=== PATIENT | female | born 1990 | race Hispanic/Latino ===

== ENCOUNTER 2018-05-27 18:42 | Emergency (ER) | payer SELFPAY ==
--- OUTSIDE RECORDS SUMMARY | 2018-05-27 18:44 | XMS REPORT | Summary of Care ---
:1990 Author Organization [facility] Address [address] [place] [address]- Encounter HQ Sonja(FIN) [phone] Date(s): 10/15/16 - 10/15/[address] [address]- Discharge Diagnosis: DUB (dysfunctional uterine bleeding) Discharge Disposition: Home or Self Care Attending Physician: Chas Cheema MD Vital Signs Most recent to oldest [Reference Range]: 1 2 Temperature Oral [96.4-99.1 DegF] 98 DegF (10/15/16 12:21 PM) Blood Pressure [90-140/60-90 mmHg] 111/67 mmHg 125/70 mmHg (10/15/16 3:07 PM) (10/15/16 12:21 PM) Respiratory Rate [14-20 BRMIN] 17 BRMIN 20 BRMIN (10/15/16 3:07 PM) (10/15/16 12:21 PM) Peripheral Pulse Rate [60-100 bpm] 77 bpm 128 bpm (10/15/16 3:07 PM) *HI* (10/15/16 12:21 PM) Weight 54.545 kg (10/15/16 12:21 PM) Problem List Condition Effective Dates Status Health Status Informant Ectopic (Confirmed) Resolved Allergies, Adverse Reactions, Alerts Substance Reaction Severity Status NKDA Active Medications Lutera oral tablet 1 tab, PO, Daily, # 28 tab, 0 Refill(s) Start Date: 10/15/16 Status: Ordered Results URINE CHEM Most recent to oldest [Reference Range]: 1 U Preg [Negative] Negative (10/15/16 1:01 PM) URINE AND STOOL Most recent to oldest [Reference Range]: 1 UA Turbidity [Clear] Clear (10/15/16 1:01 PM) UA Color Straw *NA* (10/15/16 1:01 PM) UA pH [5.0-8.0] 7.0 (10/15/16 1:01 PM) UA Spec Grav [<=1.030] 1.003 (10/15/16 1:01 PM) UA Glucose [Negative mg/dL] Negative mg/dL *NA* (10/15/16 1:01 PM) UA Blood [Negative] Large *ABN* (10/15/16 1:01 PM) UA Ketones Negative *NA* (10/15/16 1:01 PM) UA Protein [Negative mg/dL] Negative mg/dL (10/15/16 1:01 PM) UA Urobilinogen [0.1-1.0 mg/dL] <=1.0 mg/dL *NA* (10/15/16 1:01 PM) UA Bili [Negative] Negative *NA* (10/15/16 1:01 PM) UA Leuk Est [Negative] Negative (10/15/16 1:01 PM) UA Nitrite [Negative] Negative (10/15/16 1:01 PM) UA WBC [0-5 /HPF] 1 /HPF (10/15/16 1:01 PM) UA RBC [0-2 /HPF] 1 /HPF (10/15/16 1:01 PM) UA Bacteria [None Seen /HPF] Occasional /HPF *NA* (10/15/16 1:01 PM) UA Sq Epi [Few /LPF] Moderate /LPF *ABN* (10/15/16 1:01 PM) UA Mucus [None Seen /LPF] Few /LPF *NA* (10/15/16 1:01 PM) Immunizations No data available for this section Procedures Procedure Date Related Diagnosis Body Site section operation1 1Ectopic Social History Social History Type Response Alcohol Current, Frequency: 1-2 times per week. Smoking Status Never smoker; Exposure to Tobacco Smoke None; Cigarette Smoking Last 365 Days No; Reg Smoking Cessation Counseling No Assessment and Plan No data available for this section
--- OUTSIDE RECORDS SUMMARY | 2018-05-27 18:44 | XMS REPORT | Continuity of Care Document ---
:1990 Author Organization Interface Problems Problem Status Onset Classification Date Comments Source Date Reported Discharge 10/18/2016 [facility] Diagnosis: [place] DUB VAGINAL Active [facility] BLEEDING [place] Ectopic Resolved Problem 10/18/2016 [facility] Medications Medication Details Route Status Patient Ordering Order Source Instructions Provider Date {21 (Ethinyl 1 tab, PO, Active Estradiol 0.02 MG Daily, # 017 [facility] / Levonorgestrel 28 tab, [place] 0.1 MG Oral Refill(s) Tablet) / 7 (Inert Ingredients 1 MG Oral Tablet) } Pack [Lutera 28 Day] Allergies, Adverse Reactions, Alerts Substance Category Reaction Severity Reaction Status Date Comments Source type Reported NKDA Assertion Drug Active allergy [facility] Immunizations Immunization Date Given Site Status Last Updated Comments Source Results Order Results Value Reference Date Interpretation Comments Source Name Range URINE UA Ketones Negative AND 2016 [facility] URINE UA Color Straw AND 2016 [facility] URINE UA <=1.0 mg/dL 0.1 - 1.0 AND Urobilinogen 2016 [facility] URINE UA Bili Negative Negative AND [facility] (10/15/16 1:01 PM) URINE UA Turbidity Clear Clear AND 2016 [facility] pH 7.0 5.0 - 8.0 AND 2016 [facility] URINE UA Spec Grav 1.003 <=1.030 AND 2016 [facility] URINE UA RBC 1 /HPF 0 - 2 AND 2016 [facility] URINE UA Mucus Few /LPF None Seen AND /LPF 2016 [facility] URINE UA Bacteria Occasional None Seen AND /HPF /HPF 2016 [facility] URINE UA Blood Large Negative AND 2016 [facility] *ABN* [facility] (10/15/16 1:01 PM) URINE UA Sq Epi Moderate Few /LPF AND /LPF 2016 [facility] URINE UA Leuk Est Negative Negative AND 2016 [facility] (10/15/16 1:01 PM) [facility] URINE UA Nitrite Negative Negative AND 2016 [facility] (10/15/16 1:01 PM) [facility] URINE UA WBC 1 /HPF 0 - 5 AND 2016 [facility] URINE UA Glucose Negative Negative AND mg/dL mg/dL 2016 [facility] URINE UA Protein Negative Negative AND mg/dL mg/dL 2016 [facility] URINE U Preg Negative Negative CHEM 2016 [facility] (10/15/16 1:01 PM) [facility] Vital Signs Vital Sign Value Date Comments Source Respitory Rate 17 10/15/[address] [facility] Systolic (mm Hg) 111 10/15/[address] [facility] Diastolic (mm Hg) 67 10/15/[address] [facility] Heart Rate 77 10/15/[address] [facility] Weight 54.545 10/15/[address] [facility] Temperature Oral (F) 98 F 10/15/[address] [facility] Heart Rate 128 10/15/[address] [facility] Respitory Rate 20 10/15/[address] [facility] Systolic (mm Hg) 125 10/15/[address] [facility] Diastolic (mm Hg) 70 10/15/[address] [facility] Encounters Location Location Encounter Encounter Reason Attending ADM DC Status Source Details Type Number For Provider Date Date Visit [facility] Emergency [id number] Chas 10/15 10/15 [facility] /2016 [facility] Procedures Procedure Code Date Perfomer Comments Source section [id number] [facility] [id number] Ectopic [facility] operation<sup>1< [facility] /sup>
[2018-05-27] MEDS ORDERED: CEFTRIAXONE 1000 MG/VIAL ONE ×2 (19:52→20:56)
[2018-05-27] MEDS ORDERED: ACETAMINOPHEN 325 MG TABLET ONE (19:52)
[2018-05-27] MEDS ORDERED: ONDANSETRON 4 MG/2 ML VIAL ONE (19:52)
[2018-05-27] MEDS ORDERED: NA CHLORIDE 0.9% 1,000 ML ONE (19:52)
[2018-05-27] MEDS ORDERED: NA CHLORIDE 0.9% 50 ML IV ONE ×2 (19:53→20:57)
[2018-05-27 19:57] LABS: Absolute Lymphocytes (CBC) 0.3 K/uL (0.7-4.9); Absolute Monocytes 0.4 K/uL (0.1-1.3); Basophils % 0.2 % (0-1.3); Hematocrit 40.1 % (36.0-45.0); Lymphocytes % 3.8 % (15.3-44.8); MCV 94.3 fL (80-100); MPV 8.8 fL (7.6-11.3); Monocytes % 4.2 % (3.3-12.3); RBC Red Blood Cell Count 4.25 M/uL (3.86-4.86)
[2018-05-27 20:01] LABS: ALT/SGPT 79 U/L (12-78); AST/SGOT 52 U/L (15-37); Albumin 3.7 g/dL (3.4-5.0); Alkaline Phosphatase 74 U/L (45-117); BUN Blood Urea Nitrogen 6 mg/dL (7-18); Bicarbonate 26 mmol/L (21-32); Bilirubin Direct 0.2 mg/dL (0-0.2); Bilirubin Total 0.5 mg/dL (0.2-1.0); Glucose Level 129 mg/dL (74-106); Lipase 76 U/L (73-393); Potassium 3.1 mmol/L (3.5-5.1); Protein, Total 8.4 g/dL (6.4-8.2); Sodium Level 133 mmol/L (136-145)
--- NOTE | 2018-05-27 20:15 | RAD REPORT ---
EXAM DESCRIPTION: CT - Stone Protocol - 05/27/2018 8:04 pm CLINICAL HISTORY: Fever, right lower quadrant pain, vomiting COMPARISON: None. TECHNIQUE: Axial 5 mm thick images were obtained without oral or IV contrast. The [id number] span s the entirety of the system including uppermost abdomen and lung bases. All CT scans are performed using dose optimization technique as appropriate and may include automated exposure control or mA/KV adjustment according to patient size. FINDINGS: No hydronephrosis is present and no obstructing ureteral calculi. No suspicious renal mass es. Isodense masses and pyelonephritis are not excluded on a stone protocol CT scan. No urinary bladd er suspicious finding. Liver is prominent in size and shows a very diffuse fatty infiltration pattern. No focal liver lesion s seen on noncontrast imaging. Spleen and pancreas show no suspicious findings. Gallbladder is only p artially filled. Gallstones can be occult. No acute gallbladder finding seen. Biliary tree within nor mal limits. No significant adrenal finding. Minimal dilatation of the right ureter is present. No obstructing or nonobstructing calculus. There i s questionable minimal edema of the right renal parenchyma compared to the left. No left-sided hydron ephrosis or calculus. No bladder calculus seen. Uterus and ovaries show no suspicious findings. Trace amount of free fluid in the cul-de-sac is withi n physiologic limits. No free air or pneumatosis. No hernia, mass or bulky lymphadenopathy noted. No gastric dilatation or wall thickening. No acute la rge or small bowel finding identified. Appendix is normal. No significant bony abnormality. IMPRESSION: No appendicitis or other acute GI process identified. Mild dilatation of the right renal collecting system without obstructing calculus. No bladder calculu s. This is relatively mild dilatation. Blood or inflammatory debris in a ureter can cause this patter n. A recently passed stone would be possible. Prominent liver showing diffuse fatty infiltration. Isodense masses and pyelonephritis are not excluded on stone protocol technique.
--- NOTE | 2018-05-27 20:20 | RAD REPORT ---
EXAM DESCRIPTION: RAD - Chest Single View - 05/27/2018 8:11 pm CLINICAL HISTORY: Cough, possible fever, abdominal pain COMPARISON: None. TECHNIQUE: AP portable chest image was obtained 1958 hours . FINDINGS: Lungs are clear. Heart and vasculature are normal. No measurable pleural effusion and no p neumothorax. No gross bony abnormality seen. No acute aortic findings suspected. IMPRESSION: No acute cardiopulmonary process.
--- NOTE | 2018-05-27 20:21 | EDPHYS ---
Physician Documentation [facility] Name: Melissa Correa Age: 27 yrs Sex: Female : 1990 Arrival Date: 05/27/2018 Time: 18:46 Bed 7 Private MD: None, None ED Physician Ken Hendricks HPI: 05/27 19:36 This 27 yrs old Female presents to ER via Ambulatory with complaints of Fever, neel Sore Throat, Vomiting, Chills. 19:36 The patient reports fever, that was measured at 101 degrees Fahrenheit. Onset: The neel symptoms/episode began/occurred 2 day(s) ago. Modifying factors: there are no obvious modifying factors. Associated signs and symptoms: Pertinent positives: abdominal pain, chills, cough. Severity of symptoms: At their worst the symptoms were mild moderate in the emergency department the symptoms are unchanged. The patient has not experienced similar symptoms in the past. 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 - Social history:: Smoking status: Patient/guardian denies using tobacco. - Ebola Screening: : No symptoms or risks identified at this time. - Family history:: not pertinent. ROS: 19:36 Constitutional: Negative for fever, chills, and weight loss, Eyes: Negative for injury, neel pain, redness, and discharge, Neck: Negative for injury, pain, and swelling, Cardiovascular: Negative for chest pain, palpitations, and edema, Respiratory: Negative for shortness of breath, cough, wheezing, and pleuritic chest pain, Back: Negative for injury and pain, : Negative for injury, bleeding, discharge, and swelling, MS/Extremity: Negative for injury and deformity, Skin: Negative for injury, rash, and discoloration, Neuro: Negative for headache, weakness, numbness, tingling, and seizure, Psych: Negative for depression, anxiety, suicide ideation, homicidal ideation, and hallucinations, Allergy/Immunology: Negative for hives, rash, and allergies, Endocrine: Negative for neck swelling, polydipsia, polyuria, polyphagia, and marked weight changes, Hematologic/Lymphatic: Negative for swollen nodes, abnormal bleeding, and unusual bruising. 19:36 ENT: Positive for sore throat. 19:36 Abdomen/GI: Positive for abdominal pain, nausea and vomiting, of the right lower quadrant. Exam: 19:36 Head/Face: Normocephalic, atraumatic. Eyes: Pupils equal round and reactive to light, neel extra-ocular motions intact. Lids and lashes normal. Conjunctiva and sclera are non-icteric and not injected. Cornea within normal limits. Periorbital areas with no swelling, redness, or edema. Neck: Trachea midline, no thyromegaly or masses palpated, and no cervical lymphadenopathy. Supple, full range of motion without nuchal rigidity, or vertebral point tenderness. No Meningismus. Chest/axilla: Normal chest wall appearance and motion. Nontender with no deformity. No lesions are appreciated. Cardiovascular: Regular rate and rhythm with a normal S1 and S2. No gallops, murmurs, or rubs. Normal PMI, no JVD. No pulse deficits. Respiratory: Lungs have equal breath sounds bilaterally, clear to auscultation and percussion. No rales, rhonchi or wheezes noted. No increased work of breathing, no retractions or nasal flaring. Back: No spinal tenderness. No costovertebral tenderness. Full range of motion. Female : Normal external genitalia. Skin: Warm, dry with normal turgor. Normal color with no rashes, no lesions, and no evidence of cellulitis. MS/ Extremity: Pulses equal, no cyanosis. Neurovascular intact. Full, normal range of motion. Neuro: Awake and alert, GCS 15, oriented to person, place, time, and situation. Cranial nerves II-XII grossly intact. Motor strength 5/5 in all extremities. Sensory grossly intact. Cerebellar exam normal. Normal gait. Psych: Awake, alert, with orientation to person, place and time. Behavior, mood, and affect are within normal limits. 19:36 Constitutional: The patient appears febrile. 19:36 Abdomen/GI: Inspection: abdomen appears normal, Bowel sounds: normal, Palpation: mild abdominal tenderness, in the suprapubic area and right lower quadrant, Liver: no appreciated palpable abnormalities, Hernia: not appreciated. Vital Signs: 18:53 BP 145 / 101; Pulse 74; Resp 20; Temp 101.2(O); Pulse Ox 100% ; Weight 47.63 kg; Height sv 5 ft. 4 in. (162.56 cm); Pain 6/10; 19:15 BP 141 / 98; Pulse 124; Resp 21 S; Pulse Ox 97% on R/A; cc3 20:16 BP 133 / 95; Pulse 125; Resp 20 S; Temp 99.1(O); Pulse Ox 100% on R/A; Pain 5/10; cc3 21:19 BP 121 / 74; Pulse 113; Resp 20 S; Temp 100(O); Pulse Ox 100% on R/A; cc3 21:59 BP 121 / 72; Pulse 112; Resp 19 S; Temp 98.7(O); Pulse Ox 100% on R/A; Pain 4/10; bp 18:53 Body Mass Index 18.02 (47.63 kg, 162.56 cm) sv MDM: 19:23 Patient medically screened. [facility] 19:39 Data reviewed: vital signs, nurses notes, lab test result(s), radiologic studies, CT neel scan, plain films. 05/27 19:22 Order name: Basic Metabolic Panel; Complete Time: 20:16 05/27 19:22 Order name: CBC with Diff; Complete Time: 20:16 05/27 19:22 Order name: Creatinine for Radiology; Complete Time: 20:16 bp 05/27 19:22 Order name: Hepatic Function; Complete Time: 20:16 05/27 19:22 Order name: Lipase; Complete Time: 20:16 05/27 19:22 Order name: Urine Microscopic Only; Complete Time: 21:23 05/27 19:22 Order name: Strep; Complete Time: 20:16 05/27 19:36 Order name: Urine Culture [facility] 05/27 19:36 Order name: Chest Single View XRAY; Complete Time: 21:00 [facility] 05/27 19:36 Order name: CT Stone Protocol; Complete Time: 20:19 [facility] 05/27 19:36 Order name: Blood Culture Adult (2) [facility] 05/27 19:52 Order name: Urine Dipstick--Ancillary (enter results); Complete Time: 21:23 mw2 05/27 19:52 Order name: Urine --Ancillary (enter results); Complete Time: 21:23 mw2 05/27 20:01 Order name: Throat Culture EDMS 05/27 19:22 Order name: IV Saline Lock; Complete Time: 19:38 bp 05/27 19:22 Order name: Labs collected and sent; Complete Time: 19:38 bp 05/27 19:22 Order name: Urine Dipstick-Ancillary (obtain specimen); Complete Time: 20:13 bp 05/27 19:24 Order name: Urine Test (obtain specimen); Complete Time: 20:12 bp 05/27 20:20 Order name: PO challenge: juice; Complete Time: 20:26 neel Administered Medications: 19:45 Drug: Tylenol 650 mg Route: PO; cc3 20:16 Follow up: Response: No adverse reaction; Temperature is decreased cc3 19:50 Drug: NS 0.9% 1000 ml Route: IV; Rate: 1 bolus; Site: right antecubital; cc3 20:45 Follow up: Response: No adverse reaction; IV Status: Completed infusion; IV Intake: cc3 1000ml 19:50 Drug: Zofran 4 mg Route: IVP; Site: right antecubital; cc3 20:15 Follow up: Response: No adverse reaction; Nausea is decreased cc3 20:00 Drug: Rocephin - (cefTRIAXone) 1 grams Route: IVPB; Infused Over: 30 mins; Site: right cc3 antecubital; 20:35 Follow up: Response: No adverse reaction; IV Status: Completed infusion; IV Intake: [id number] 20:25 Not Given (Duplicate Order): Rocephin - (cefTRIAXone) 1 grams IVPB once over 30 mins; cc3 (mix in 50 mL NS) 20:35 Drug: Potassium Effervescent Tablet 25 mEq Route: PO; cc3 20:45 Follow up: Response: No adverse reaction cc3 20:35 Drug: LevOfloxacin 500 mg Route: PO; cc3 20:45 Follow up: Response: No adverse reaction cc3 20:50 Drug: Rocephin - (cefTRIAXone) 1 grams Route: IVPB; Infused Over: 30 mins; Site: right cc3 antecubital; 21:20 Follow up: Response: No adverse reaction; IV Status: Completed infusion; IV Intake: [id number] 21:25 Drug: Motrin 400 mg Route: PO; cc3 21:59 Follow up: Response: No adverse reaction; Temperature is decreased cc3 Disposition: 05/27/18 20:21 Discharged to Home. Impression: Acute tubulo-interstitial nephritis, Cystitis, Fever, unspecified, Hypokalemia. - Condition is Stable. - Discharge Instructions: Potassium Content of Foods, Dysuria, Fever, Adult, Pyelonephritis, Adult, Pyelonephritis, Adult, [id number]. - Prescriptions for Levaquin 500 mg Oral Tablet - take 1 tablet by ORAL route once daily for 8-10 days; 9 tablet. Zofran 4 mg Oral Tablet - take 1 tablet by ORAL route every 12 hours As needed; 20 tablet. - Medication Reconciliation Form, Thank You Letter, Antibiotic Education, Prescription Opioid Use form. - Follow up: Private Physician; When: 2 - 3 days; Reason: Recheck today's complaints, Continuance of care, Re-evaluation by your physician. - Problem is new. - Symptoms have improved. Signatures: Dispatcher [employer] Josephine Dolan RN Ken Dennis MD MD cha Peltier, Brian, RN RN bp Cordel, Charlene cc3 Corrections: (The following items were deleted from the chart) 22:10 20:21 05/27/2018 20:21 Discharged to Home. Impression: Acute tubulo-interstitial cc3 nephritis; Cystitis; Fever, unspecified; Hypokalemia. Condition is Stable. Forms are Medication Reconciliation Form, Thank You Letter, Antibiotic Education, Prescription Opioid Use. Follow up: Private Physician; When: 2 - 3 days; Reason: Recheck today's complaints, Continuance of care, Re-evaluation by your physician. Problem is new. Symptoms have improved. neel
--- NOTE | 2018-05-27 20:21 | ER ---
Nurse's Notes [facility] Name: Melissa Correa Age: 27 yrs Sex: Female : 1990 Arrival Date: 05/27/2018 Time: 18:46 Bed 7 Private MD: None, None Diagnosis: Acute tubulo-interstitial nephritis;Cystitis;Fever, unspecified;Hypokalemia Presentation: 05/27 18:51 Presenting complaint: Patient states: subjective fever, RLQ pain, sore throat, vomiting sv x 3 days. Motrin taken at 1800. Pt had taken Azo and was feeling worse. Transition of care: patient was not received from another setting of care. Onset of symptoms was May 24, 2018. Care prior to arrival: None. 18:51 Method Of Arrival: Ambulatory sv 18:51 Acuity: DANIA 3 sv 19:15 Initial Sepsis Screen: Does the patient meet any 2 criteria?. cc3 19:15 Risk Assessment: Do you want to hurt yourself or someone else? Patient reports no cc3 desire to harm self or others. Initial Sepsis Screen: Does the patient meet any 2 criteria? Temp <36.0*C (96.8*F)) or > 38.3*C (100.4*F). HR > 90 bpm. Does the patient have a suspected source of infection? No. Patient's initial sepsis screen is negative. Triage Assessment: 19:00 General: Appears in no apparent distress. comfortable, Behavior is calm, cooperative, cc3 appropriate for age. Pain: Complains of pain in right lower quadrant Pain currently is 6 out of 10 on a pain scale. Quality of pain is described as aching, Pain began 2-3 days ago. EENT: No signs and/or symptoms were reported regarding the EENT system. Neuro: Level of Consciousness is awake, alert, obeys commands, Oriented to person, place, time, situation, Appropriate for age. Cardiovascular: Reports nausea. Respiratory: Airway is patent Respiratory effort is even, unlabored, Respiratory pattern is regular, symmetrical. GI: Reports lower abdominal pain, nausea, since 2-3 days ago. : Reports urinary frequency. Derm: No signs and/or symptoms reported regarding the dermatologic system. Musculoskeletal: Circulation, motion, and sensation intact. Range of motion: intact in all extremities. 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 - Social history:: Smoking status: Patient/guardian denies using tobacco. - Ebola Screening: : No symptoms or risks identified at this time. - Family history:: not pertinent. Screenin:15 Abuse screen: Denies threats or abuse. Denies injuries from another. Nutritional cc3 screening: No deficits noted. Tuberculosis screening: No symptoms or risk factors identified. Fall Risk None identified. Ambulatory Aid- None/Bed Rest/Nurse Assist (0 pts). Gait- Normal/Bed Rest/Wheelchair (0 pts) Mental Status- Oriented to own ability (0 pts). Assessment: 19:00 Reassessment: see triage assessment. cc3 19:00 Respiratory: Airway is patent Respiratory effort is even, unlabored, Respiratory cc3 pattern is regular, symmetrical, Breath sounds are clear bilaterally. 19:00 EENT: Throat sore throat. cc3 20:16 Reassessment: Patient appears in no apparent distress at this time. Patient and/or cc3 family updated on plan of care and expected duration. Pain level reassessed. Patient is alert, oriented x 3, equal unlabored respirations, skin warm/dry/pink. Patient came back from CT scan department, CT scan stone protocol done. 20:26 Reassessment: oral challenge done as ordered; patient tolerated 4 glasses of water and cc3 a cup of juice. 20:55 Reassessment: Discharge on hold for IV completion. cc3 21:30 Reassessment: Patient appears in no apparent distress at this time. Patient and/or cc3 family updated on plan of care and expected duration. Pain level reassessed. Patient is alert, oriented x 3, equal unlabored respirations, skin warm/dry/pink. patient tolerated another 2 glasses of water. Patient states feeling better. Patient states symptoms have improved. 21:59 Reassessment: Patient discharged home by Dr. Hendricks with prescription given. IV cc3 cannula removed and patient left ER vitally stable and ambulatory with her mother. Vital Signs: 18:53 BP 145 / 101; Pulse 74; Resp 20; Temp 101.2(O); Pulse Ox 100% ; Weight 47.63 kg; Height sv 5 ft. 4 in. (162.56 cm); Pain 6/10; 19:15 BP 141 / 98; Pulse 124; Resp 21 S; Pulse Ox 97% on R/A; cc3 20:16 BP 133 / 95; Pulse 125; Resp 20 S; Temp 99.1(O); Pulse Ox 100% on R/A; Pain 5/10; cc3 21:19 BP 121 / 74; Pulse 113; Resp 20 S; Temp 100(O); Pulse Ox 100% on R/A; cc3 21:59 BP 121 / 72; Pulse 112; Resp 19 S; Temp 98.7(O); Pulse Ox 100% on R/A; Pain 4/10; bp 18:53 Body Mass Index 18.02 (47.63 kg, 162.56 cm) sv ED Course: 18:46 Patient arrived in ED. mr 18:46 None, None is Private Physician. mr 18:52 Triage completed. sv 18:55 Arm band placed on left wrist. sv 19:02 Silver Egan, RN is Primary Nurse. bp 19:15 Patient has correct armband on for positive identification. Bed in low position. Call cc3 light in reach. Side rails up X 1. Adult w/ patient. 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 19:20 Inserted saline lock: 20 gauge in right antecubital area, using aseptic technique. cc3 Blood collected. 19:23 Ken Hendricks MD is Attending Physician. [facility] 20:[address] nj 20:04 CT completed. Patient tolerated procedure well. Patient moved back from radiology. nj 20:04 CT Stone Protocol In Process Unspecified. EDMS 20:09 Chest Single View XRAY In Process Unspecified. EDMS 21:59 No provider procedures requiring assistance completed. IV discontinued, intact, cc3 bleeding controlled, No redness/swelling at site. Pressure dressing applied. Administered Medications: 19:45 Drug: Tylenol 650 mg Route: PO; cc3 20:16 Follow up: Response: No adverse reaction; Temperature is decreased cc3 19:50 Drug: NS 0.9% 1000 ml Route: IV; Rate: 1 bolus; Site: right antecubital; cc3 20:45 Follow up: Response: No adverse reaction; IV Status: Completed infusion; IV Intake: cc3 1000ml 19:50 Drug: Zofran 4 mg Route: IVP; Site: right antecubital; cc3 20:15 Follow up: Response: No adverse reaction; Nausea is decreased cc3 20:00 Drug: Rocephin - (cefTRIAXone) 1 grams Route: IVPB; Infused Over: 30 mins; Site: right cc3 antecubital; 20:35 Follow up: Response: No adverse reaction; IV Status: Completed infusion; IV Intake: 50inff1 20:25 Not Given (Duplicate Order): Rocephin - (cefTRIAXone) 1 grams IVPB once over 30 mins; cc3 (mix in 50 mL NS) 20:35 Drug: Potassium Effervescent Tablet 25 mEq Route: PO; cc3 20:45 Follow up: Response: No adverse reaction cc3 20:35 Drug: LevOfloxacin 500 mg Route: PO; cc3 20:45 Follow up: Response: No adverse reaction cc3 20:50 Drug: Rocephin - (cefTRIAXone) 1 grams Route: IVPB; Infused Over: 30 mins; Site: right cc3 antecubital; 21:20 Follow up: Response: No adverse reaction; IV Status: Completed infusion; IV Intake: [id number] 21:25 Drug: Motrin 400 mg Route: PO; cc3 21:59 Follow up: Response: No adverse reaction; Temperature is decreased cc3 Intake: 20:35 IV: 50ml; Total: 50ml. cc3 20:45 IV: 1000ml; Total: 1050ml. cc3 21:20 IV: 50ml; Total: 1100ml. cc3 Outcome: 20:21 Discharge ordered by MD. shaikh 21:59 Discharged to home ambulatory, with family. cc3 21:59 Condition: stable 21:59 Discharge instructions given to patient, family, Instructed on discharge instructions, follow up and referral plans. medication usage, Demonstrated understanding of instructions, follow-up care, medications, Prescriptions given X 2. 22:10 Patient left the ED. cc3 Signatures: Dispatcher [employer] EDMS Josephine Leone RN RN sv Anderson, Corey, MD MD cha Rivera, Maria mr Osman, Silver Woodward RN RN bp Cordel, Charlene cc3 Corrections: (The following items were deleted from the chart) 20:44 20:16 BP 133 / 95; Pulse 125bpm; Resp 20bpm; Spontaneous; Pulse Ox 100% RA; Temp 99.1F cc3 Oral; cc3
[2018-05-27] MEDS ORDERED: levoFLOXacin 500 MG TAB ONE (20:35)
[2018-05-27] MEDS ORDERED: POTASSIUM 25 MEQ EFFERV TAB ONE (20:36)
[2018-05-27 21:04] LABS: Urine Blood 2+ (NEG); Urine Glucose TRACE (NEG); Urine Protein NEGATIVE (NEG); Urine Specific Gravity 1.015 (1.005-1.030)
[2018-05-27 21:05] LABS: Urine Bacteria <20 /HPF (<20); Urine Culture Reflex Order NOT NEEDED; Urine Mucus SLIGHT /HPF (NONE SEEN)
[2018-05-27] MEDS ORDERED: IBUPROFEN 400 MG TAB ONE (21:36)
== END 2018-05-27 22:10 | disposition home or self-care (01) ==
LOC: ER 18:42
DX: N10 Acute pyelonephritis (principal); N30.90 Cystitis, unspecified without hematuria; E87.6 Hypokalemia; Z88.5 Allergy status to narcotic agent
CPT/HCPCS: 36415; 71045; 74176; 76377; 80048; 80076; 81003; 81015; 81025; 83690; 85025; 87040; 87070; 87077; 87081; 87086; 87088; 87186; 87205; 96365; 96375; 99285; J2405; J7030

== ENCOUNTER 2018-09-03 22:18 | Emergency (ER) | payer SELFPAY ==
--- OUTSIDE RECORDS SUMMARY | 2018-09-03 22:20 | XMS REPORT | Continuity of Care Document ---
:1990 Author Organization Interface Problems Problem Status Onset Classification Date Comments Source Date Reported Discharge 10/18/2016 [facility] [place] DUB VAGINAL Active [facility] [place] BLEEDING [place] Ectopic Resolved Problem 10/18/2016 [facility] Medications Medication Details Route Status Patient Ordering Order Source Instructions Provider Date {21 (Ethinyl 1 tab, PO, Active Estradiol 0.02 MG Daily, # 017 [facility] / Levonorgestrel 28 tab, 0 City 0.1 MG Oral Refill(s) Tablet) / 7 (Inert Ingredients 1 MG Oral Tablet) } Pack [Lutera 28 Day] Allergies, Adverse Reactions, Alerts Substance Category Reaction Severity Reaction Status Date Comments Source type Reported Immunizations Immunization Date Given Site Status Last Updated Comments Source Results Order Results Value Reference Date Interpretation Comments Source Name Range URINE UA Ketones Negative AND 2016 [facility] URINE UA Color Straw AND 2016 [facility] URINE UA <=1.0 mg/dL 0.1 - 1.0 AND Urobilinogen 2016 [facility] URINE UA Bili Negative Negative AND 2016 [facility] *NA* [facility] (10/15/16 1:01 PM) URINE UA Turbidity Clear Clear AND 2016 [facility] pH 7.0 5.0 - 8.0 AND 2016 [facility] URINE UA Spec Grav 1.003 <=1.030 AND 2016 [facility] URINE UA RBC 1 /HPF 0 - 2 AND 2016 [facility] URINE UA Mucus Few /LPF None Seen AND /LPF 2016 [facility] URINE UA Bacteria Occasional None Seen AND /HPF /HPF 2016 [facility] URINE UA Blood Large Negative AND 2016 [facility] *ABN* [facility] (10/15/16 1:01 PM) URINE UA Sq Epi Moderate Few /LPF AND /LPF 2016 [facility] URINE UA Leuk Est Negative Negative AND 2016 [facility] (10/15/16 1:01 PM) [facility] URINE UA Nitrite Negative Negative AND 2016 [facility] (10/15/16 1:01 PM) [facility] URINE UA WBC 1 /HPF 0 - 5 AND 2016 [facility] URINE UA Glucose Negative Negative AND mg/dL mg/dL 2016 [facility] URINE UA Protein Negative Negative AND mg/dL mg/dL 2016 [facility] URINE U Preg Negative Negative CHEM 2016 [facility] (10/15/16 1:01 PM) [facility] Vital Signs Vital Sign Value Date Comments Source Respitory Rate 17 10/15/[address] [facility] Systolic (mm Hg) 111 10/15/[address] [facility] Diastolic (mm Hg) 67 10/15/[address] [facility] Heart Rate 77 10/15/[address] [facility] Weight 54.545 10/15/[address] [facility] Temperature Oral (F) 98 F 10/15/[address] [facility] Heart Rate 128 10/15/[address] [facility] Respitory Rate 20 10/15/[address] [facility] Systolic (mm Hg) 125 10/15/[address] [facility] Diastolic (mm Hg) 70 10/15/[address] [facility] Encounters Location Location Encounter Encounter Reason Attending ADM DC Status Source Details Type Number For Provider Date Date Visit [facility] Emergency [id number] Chas 10/15 10/15 [facility] /2016 [facility] Procedures Procedure Code Date Perfomer Comments Source section [id number] [facility] [id number] Ectopic [facility] operation<sup>1< [facility] /sup>
[2018-09-03 23:22] LABS: Urine Blood NEGATIVE (NEG); Urine Glucose NEGATIVE (NEG); Urine Protein NEGATIVE (NEG); Urine Specific Gravity <1.005 (1.005-1.030)
[2018-09-03] MEDS ORDERED: NA CHLORIDE 0.9% 1,000 ML ONE (23:42)
[2018-09-03 23:43] LABS: Absolute Lymphocytes (CBC) 3.2 K/uL (0.7-4.9); Absolute Monocytes 0.5 K/uL (0.1-1.3); Absolute Neutrophil 3.2 K/uL (1.8-8.0); Basophils % 0.8 % (0-1.3); Hematocrit 41.6 % (36.0-45.0); Monocytes % 7.7 % (3.3-12.3); RBC Red Blood Cell Count 4.41 M/uL (3.86-4.86)
[2018-09-04 00:06] LABS: ALT/SGPT 221 U/L (12-78); AST/SGOT 184 U/L (15-37); Albumin 3.7 g/dL (3.4-5.0); Alkaline Phosphatase 103 U/L (45-117); BUN Blood Urea Nitrogen 8 mg/dL (7-18); Bicarbonate 22 mmol/L (21-32); Bilirubin Direct < 0.1 mg/dL (0-0.2); Bilirubin Total 0.1 mg/dL (0.2-1.0); Glucose Level 94 mg/dL (74-106); Potassium 3.8 mmol/L (3.5-5.1); Protein, Total 8.7 g/dL (6.4-8.2); Sodium Level 138 mmol/L (136-145)
[2018-09-04 00:06] LABS: Barbiturates NEGATIVE (NEGATIVE); Benzodiazepines NEGATIVE (NEGATIVE); Cocaine POSITIVE (NEGATIVE); METHAMPHETAM NEGATIVE (NEGATIVE); Methadone NEGATIVE (NEGATIVE); Opiates NEGATIVE (NEGATIVE); Phencyclidine NEGATIVE (NEGATIVE); THC Cannibis NEGATIVE (NEGATIVE)
[2018-09-04 00:20] LABS: Protime INR 0.94
--- NOTE | 2018-09-04 01:08 | EDPHYS ---
Physician Documentation [facility] Name: Melissa Correa Age: 28 yrs Sex: Female : 1990 Arrival Date: 09/03/2018 Time: 22:19 Bed 20 Private MD: ED Physician Ken Hendricks HPI: 09/04 00:02 This 28 yrs old Female presents to ER via Ambulatory with complaints of pm1 Vomiting. 00:02 The patient presents to the emergency department with vomiting. Onset: The pm1 symptoms/episode began/occurred today. Possible causes: Alcohol. The symptoms are aggravated by nothing. The symptoms are alleviated by nothing. Associated signs and symptoms: Pertinent positives: diarrhea, dysuria, fever, Pertinent negatives: abdominal pain. Severity of symptoms: Pain is currently a 0 / 10. The patient has not experienced similar symptoms in the past. The patient has not recently seen a physician. Patient has been drinking daily for the past few days and has also used some of her sister's prescription drugs for anxiety. 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 - Social history:: Smoking status: Patient uses tobacco products, denies chronic smoking, but will smoke occasionally, Patient uses alcohol, drinking 6-[address] drugs, marijuana, Patient uses street drugs, cocaine. - Ebola Screening: : Patient negative for fever greater than or equal to 101.5 degrees Fahrenheit, and additional compatible Ebola Virus Disease symptoms Patient denies exposure to infectious person Patient denies travel to an Ebola-affected area in the 21 days before illness onset. ROS: 09/04 00:02 Constitutional: Negative for fever, chills, and weight loss, Eyes: Negative for injury, pm1 pain, redness, and discharge, ENT: Negative for injury, pain, and discharge, Neck: Negative for injury, pain, and swelling, Cardiovascular: Negative for chest pain, palpitations, and edema, Respiratory: Negative for shortness of breath, cough, wheezing, and pleuritic chest pain. Back: Negative for injury and pain, : Negative for injury, bleeding, discharge, and swelling, MS/Extremity: Negative for injury and deformity, Skin: Negative for injury, rash, and discoloration, Neuro: Negative for headache, weakness, numbness, tingling, and seizure. Abdomen/GI: Positive for vomiting, Negative for abdominal pain, diarrhea, black/tarry stool. Exam: 00:02 Constitutional: This is a well developed, well nourished patient who is awake, alert, pm1 and in no acute distress. Head/Face: Normocephalic, atraumatic. Eyes: Pupils equal round and reactive to light, extra-ocular motions intact. Lids and lashes normal. Conjunctiva and sclera are non-icteric and not injected. Cornea within normal limits. Periorbital areas with no swelling, redness, or edema. ENT: Nares patent. No nasal discharge, no septal abnormalities noted. Tympanic membranes are normal and external auditory canals are clear. Oropharynx with no redness, swelling, or masses, exudates, or evidence of obstruction, uvula midline. Mucous membranes moist. Neck: Trachea midline, no thyromegaly or masses palpated, and no cervical lymphadenopathy. Supple, full range of motion without nuchal rigidity, or vertebral point tenderness. No Meningismus. Chest/axilla: Normal chest wall appearance and motion. Nontender with no deformity. No lesions are appreciated. Cardiovascular: Regular rate and rhythm with a normal S1 and S2. No gallops, murmurs, or rubs. Normal PMI, no JVD. No pulse deficits. Respiratory: Lungs have equal breath sounds bilaterally, clear to auscultation and percussion. No rales, rhonchi or wheezes noted. No increased work of breathing, no retractions or nasal flaring. Abdomen/GI: Soft, non-tender, with normal bowel sounds. No distension or tympany. No guarding or rebound. No evidence of tenderness throughout. Back: No spinal tenderness. No costovertebral tenderness. Full range of motion. Skin: Warm, dry with normal turgor. Normal color with no rashes, no lesions, and no evidence of cellulitis. MS/ Extremity: Pulses equal, no cyanosis. Neurovascular intact. Full, normal range of motion. 00:02 Neuro: Orientation: is normal, Motor: is normal, Gait: is steady, at a normal pace, without difficulty. Vital Signs: 09/03 22:42 BP 143 / 103; Pulse 99; Resp 18; Temp 99.3(O); Pulse Ox 100% on R/A; Weight 49.9 kg fc (R); Height 5 ft. 4 in. (162.56 cm) (R); Pain 5/10; 23:59 BP 125 / 86; Pulse 100; Resp 18; Pulse Ox 99% on R/A; mt 09/04 01:29 BP 123 / 76; Pulse 98; Resp 16 S; Pulse Ox 99% on R/A; jd3 09/03 22:42 Body Mass Index 18.88 (49.90 kg, 162.56 cm) fc MDM: 09/03 23:09 Patient medically screened. neel 09/04 00:05 Data reviewed: vital signs. Data interpreted: Pulse oximetry: on room air is 99 %. pm1 Interpretation: normal. 01:06 Counseling: I had a detailed discussion with the patient and/or guardian regarding: the pm1 historical points, exam findings, and any diagnostic results supporting the discharge/admit diagnosis, lab results, the need for outpatient follow up, to return to the emergency department if symptoms worsen or persist or if there are any questions or concerns that arise at home. 09/03 23:13 Order name: Urine Dipstick--Ancillary (enter results) ar5 09/03 23:31 Order name: Acetaminophen; Complete Time: 00:28 pm1 09/03 23:31 Order name: Basic Metabolic Panel; Complete Time: 00:28 pm1 09/03 23:31 Order name: CBC with Diff; Complete Time: 00:28 pm1 09/03 23:31 Order name: ETOH Level; Complete Time: 00:28 pm1 09/03 23:31 Order name: Hepatic Function; Complete Time: 00:28 pm1 09/03 23:31 Order name: PT-INR; Complete Time: 00:28 pm1 09/03 23:31 Order name: Ptt, Activated; Complete Time: 00:28 pm1 09/03 23:31 Order name: Salicylate; Complete Time: 01:51 pm1 09/03 23:31 Order name: Urine Drug Screen; Complete Time: 00:28 pm1 09/03 23:31 Order name: EKG; Complete Time: 23:32 pm1 09/03 23:31 Order name: Urine Test (obtain specimen); Complete Time: 23:35 pm1 09/03 23:31 Order name: EKG - Nurse/Tech; Complete Time: 23:54 pm1 09/03 23:31 Order name: IV Saline Lock; Complete Time: 23:35 pm1 09/03 23:31 Order name: Labs collected and sent; Complete Time: 23:35 pm1 09/03 23:31 Order name: Urine Dipstick-Ancillary (obtain specimen); Complete Time: 23:35 pm1 Administered Medications: 09/03 23:41 Drug: NS 0.9% 1000 ml Route: IV; Rate: 1000 ml; Site: right antecubital; rr5 09/04 01:09 Follow up: Response: No adverse reaction; IV Status: Completed infusion; IV Intake: jd3 1000ml 01:27 Drug: Pepcid 20 mg Route: IVP; Site: right antecubital; jd3 01:31 Follow up: Response: Medication administered at discharge. jd3 01:28 Drug: Zofran 4 mg Route: IVP; Site: right antecubital; jd3 01:30 Follow up: Response: Medication administered at discharge. jd3 Disposition: 09/04/18 01:07 Discharged to Home. Impression: Alcohol abuse with intoxication, Cocaine abuse. - Condition is Stable. - Discharge Instructions: Alcohol Intoxication, Alcohol Use Disorder, Stimulant Use Disorder-Cocaine. - Prescriptions for Zofran 4 mg Oral Tablet - take 1 tablet by ORAL route every 12 hours As needed; 20 tablet. Pepcid 20 mg Oral Tablet - take 1 tablet by ORAL route once daily; 20 tablet. - Medication Reconciliation Form, Thank You Letter, Family Work Release form. - Follow up: Emergency Department; When: As needed; Reason: Worsening of condition. Follow up: Private Physician; When: 2 - 3 days; Reason: Recheck today's complaints, Continuance of care, Re-evaluation by your physician. - Problem is new. - Symptoms have improved. Addendum: 09/09/2018 11:32 Co-signature as Attending Physician, Ken Hendricks MD I agree with the assessment and c guerrero plan of care. Signatures: Dispatcher [employer] Ken Bojorquez MD MD cha Chretien, Felicia, RN RN fc Jesús Mondragon NP ADVERTISER pm1 Jackson Valverde RN RN jd3 Rodrick Grissom RN RN rr5 Corrections: (The following items were deleted from the chart) 09/04 01:31 01:07 09/04/2018 01:07 Discharged to Home. Impression: Alcohol abuse with intoxication; jd3 Cocaine abuse. Condition is Stable. Forms are Medication Reconciliation Form, Thank You Letter, Antibiotic Education, Prescription Opioid Use. Follow up: Emergency Department; When: As needed; Reason: Worsening of condition. Follow up: Private Physician; When: 2 - 3 days; Reason: Recheck today's complaints, Continuance of care, Re-evaluation by your physician. Problem is new. Symptoms have improved. pm1
--- NOTE | 2018-09-04 01:08 | ER ---
Nurse's Notes [facility] Unit Name: Melissa Correa Age: 28 yrs Sex: Female : 1990 Arrival Date: 09/03/2018 Time: 22:19 Bed 20 Private MD: Diagnosis: Alcohol abuse with intoxication;Cocaine abuse Presentation: 09/03 22:38 Presenting complaint: Patient states: that she has been drinking alcohol heavily for fc that past week. 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 Also having diarrhea today. Transition of care: patient was not received from another setting of care. Onset of symptoms was September 03, 2018 at 21:30. Risk Assessment: Do you want to hurt yourself or someone else? Patient reports no desire to harm self or others. Care prior to arrival: None. 22:38 Method Of Arrival: Ambulatory fc 22:38 Acuity: DANIA 3 fc 23:04 Initial Sepsis Screen: Does the patient meet any 2 criteria? No. Patient's initial jd3 sepsis screen is negative. Does the patient have a suspected source of infection? No. Patient's initial sepsis screen is negative. 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 - Social history:: Smoking status: Patient uses tobacco products, denies chronic smoking, but will smoke occasionally, Patient uses alcohol, drinking 6-[address] drugs, marijuana, Patient uses street drugs, cocaine. - Ebola Screening: : Patient negative for fever greater than or equal to 101.5 degrees Fahrenheit, and additional compatible Ebola Virus Disease symptoms Patient denies exposure to infectious person Patient denies travel to an Ebola-affected area in the 21 days before illness onset. Screenin:04 Abuse screen: Denies threats or abuse. Nutritional screening: No deficits noted. jd3 Tuberculosis screening: No symptoms or risk factors identified. Fall Risk IV access (20 points). Ambulatory Aid- None/Bed Rest/Nurse Assist (0 pts). Gait- Normal/Bed Rest/Wheelchair (0 pts) Mental Status- Oriented to own ability (0 pts). Total Parmar Fall Scale indicates No Risk (0-24 pts). Assessment: 23:01 General: Appears in no apparent distress. uncomfortable, Behavior is calm, cooperative, jd3 appropriate for age, Smells of alcohol. Pain: Complains of pain in right breast, left breast, suprapubic area, right lower quadrant and left lower quadrant Quality of pain is described as aching, tender. Neuro: Level of Consciousness is awake, alert, obeys commands, Oriented to person, place, time, situation. Cardiovascular: Heart tones S1 S2 present Capillary refill < 3 seconds Patient's skin is warm and dry. Respiratory: Airway is patent Respiratory effort is even, unlabored, Respiratory pattern is regular, symmetrical, Breath sounds are clear bilaterally. GI: Abdomen is flat, non-distended, Pt is actively vomiting dark brown colored emesis. Bowel sounds present X 4 quads. Abd is soft Abdomen is tender to palpation in suprapubic area, right lower quadrant and left lower quadrant Reports nausea, vomiting. : Reports burning with urination, urgency, fowl smell with urination. EENT: No signs and/or symptoms were reported regarding the EENT system. Derm: Skin is intact, Skin is dry, Skin is normal, Skin temperature is warm. Musculoskeletal: Circulation, motion, and sensation intact. Range of motion: intact in all extremities. 09/04 00:07 Reassessment: Patient appears in no apparent distress at this time. Patient and/or jd3 family updated on plan of care and expected duration. Pain level reassessed. Patient is alert, oriented x 3, equal unlabored respirations, skin warm/dry/pink. 01:08 Reassessment: Patient appears in no apparent distress at this time. Patient and/or jd3 family updated on plan of care and expected duration. Pain level reassessed. Patient is alert, oriented x 3, equal unlabored respirations, skin warm/dry/pink. Patient states feeling better. Vital Signs: 09/03 22:42 BP 143 / 103; Pulse 99; Resp 18; Temp 99.3(O); Pulse Ox 100% on R/A; Weight 49.9 kg fc (R); Height 5 ft. 4 in. (162.56 cm) (R); Pain 5/10; 23:59 BP 125 / 86; Pulse 100; Resp 18; Pulse Ox 99% on R/A; mt 09/04 01:29 BP 123 / 76; Pulse 98; Resp 16 S; Pulse Ox 99% on R/A; jd3 09/03 22:42 Body Mass Index 18.88 (49.90 kg, 162.56 cm) ED Course: 09/03 22:19 Patient arrived in ED. ag3 22:40 Triage completed. fc 22:45 Arm band placed on Patient placed in an exam room, on a stretcher. 22:54 Jackson Valverde, [place] is Primary Nurse. jd3 22:56 Inserted saline lock: 20 gauge in right antecubital area, using aseptic technique. tn Blood collected. 23:04 Patient has correct armband on for positive identification. Bed in low position. Call jd3 light in reach. Side rails up X 1. Adult w/ patient. 23:05 Jesús Mondragon NP is PHCP. pm1 23:05 Ken Hendricks MD is Attending Physician. pm1 09/04 01:30 No provider procedures requiring assistance completed. IV discontinued, intact, jd3 bleeding controlled, No redness/swelling at site. Pressure dressing applied. Administered Medications: 09/03 23:41 Drug: NS 0.9% 1000 ml Route: IV; Rate: 1000 ml; Site: right antecubital; rr5 09/04 01:09 Follow up: Response: No adverse reaction; IV Status: Completed infusion; IV Intake: jd3 1000ml 01:27 Drug: Pepcid 20 mg Route: IVP; Site: right antecubital; jd3 01:31 Follow up: Response: Medication administered at discharge. jd3 01:28 Drug: Zofran 4 mg Route: IVP; Site: right antecubital; jd3 01:30 Follow up: Response: Medication administered at discharge. jd3 Intake: 01:09 IV: 1000ml; Total: 1000ml. jd3 Outcome: 01:07 Discharge ordered by . pm1 01:30 Discharged to home ambulatory, with family. jd3 01:30 Condition: stable 01:30 Discharge instructions given to patient, family, Instructed on discharge instructions, follow up and referral plans. medication usage, Demonstrated understanding of instructions, follow-up care, medications, Prescriptions given X 2. 01:31 Patient left the ED. jd3 Signatures: Rossi Valente, RN RN Jesús Mdcermott MANUFACTURING TEAM MEMBER MANUFACTURING TEAM MEMBER pm1 Justine Oh mt, Jonathon, RN RN jd3 Charlene Kumar ag3 Rodrick Grissom RN RN rr5 Corrections: (The following items were deleted from the chart) 09/03 23:04 23:01 General: Appears in no apparent distress. uncomfortable, Behavior is calm, jd3 cooperative, appropriate for age, jd3
[2018-09-04] MEDS ORDERED: ONDANSETRON 4 MG/2 ML VIAL ONE (01:27)
[2018-09-04] MEDS ORDERED: FAMOTIDINE 20 MG/2 ML VIAL IV ONE (01:27)
--- NOTE | 2018-09-04 06:25 | EKG ---
Test Date: 2018-09-03 Test Time: 23:48:20 Personalized Living Manager Nurse: FRANNIE MEASUREMENT RESULTS: Intervals: Rate: 88 PA: 188 QRSD: 90 QT: 372 QTc: 450 [place]: P: 64 PA: 188 QRS: 77 T: 52 INTERPRETIVE STATEMENTS: Normal sinus rhythm Possible Left atrial enlargement T wave abnormality, consider anterior ischemia Abnormal ECG No previous ECG available for comparison Electronically Signed On 09-04-18 06:24:45 CARDIOVASCULAR LAB DIRECTOR by Nicholas Bucio
== END 2018-09-04 01:31 | disposition home or self-care (01) ==
LOC: ER 22:18
DX: F10.129 Alcohol abuse with intoxication, unspecified (principal); F14.10 Cocaine abuse, uncomplicated; Z72.0 Tobacco use
CPT/HCPCS: 36415; 80048; 80076; 80307; 80320; 80329; 81003; 85025; 85610; 85730; 93005; 96361; 96374; 96375; 99284; J2405; J7030